=== PATIENT | female | born 1970 | race Caucasian/White ===

== ENCOUNTER 2023-11-17 07:37 | Emergency (ER) | payer BC, SELFPAY ==
[2023-11-17 07:49] VITALS: BP 125/74; PULSE 78; RESP 18; TEMP 36.3; O2SAT 99; BMI 29.1
--- NOTE | 2023-11-17 08:45 | ED.EYEPROB ---
HPI - Eye Problem General Date Seen: 11/17/23 Chief complaint: Eye Problems Stated complaint: RT eye pain, redness, swelling Time Seen by Provider: 11/17/23 07:51 Source: patient and family Mode of arrival: ambulatory Limitations: no limitations History of Present Illness HPI Narrative: Patient is a very nice 53-year-old female who presents here with her significant other for evaluation of right eye pain, this came on after she took her contact out last night, she had some difficulty doing this. It did cause her some problems at the time but she woke up a few hours later at 2:00 a.m. with tearing of her right eye pain and really worsening when she lays flat. The pain improves when she sits up. And also the light bothers her eyes. She thought maybe she got a lash in RE as this is happened before and she irrigated out her eye, she also thought maybe she is developing a stye. She did not take anything for the eye, she did use some refresh drops. She seeks her eye care up in [place] with . Tetanus was updated 2018. She is allergic to canes. But notes that she has had lidocaine without a problem and sewing her up, the 2 times were it has been an issue has been an injection in her mouth, for dental work. Where she actually had a syncopal episode after this. MD chief complaint: eye pain and eye redness Onset (ago): hour(s) Onset description: sudden and awoke with symptoms Location: right eye Eye Symptoms: burning, redness, pain, foreign body sensation and photophobia Place: home Mechanism: direct trauma Severity: moderate If Pain, Quality: sharp Associated symptoms: none Treatments Prior to Arrival: OTC eye drops Related Data Patient tetanus UTD: Yes Previous Rx's ?Medication ?Instructions ?Recorded ofloxacin 0.3 % eye drops See Rx Instructions ophthalmic 11/17/23 (eye) .COMPLEX #10 mL Allergies Allergy/AdvReac Type Severity Reaction Status Date / Time medhat AdvReac Uncoded 11/17/23 07:52 PFSH PFSH Social History Smoking Status: Unknown if ever smoked Non-prescribed substance use: denies use Exam Narrative: Exam Narrative: On examination in room 4 she is in no apparent distress. Her right eye is tearing, there is no lid swelling notable. She has no significant redness, her pupils are equal round reactive to light I do not see a ciliary blush. She is not really able to open her eyes and she is pretty photophobic in her right eye, none in her left. There is no preauricular nodes notable. No evidence of trauma. Extraocular muscles are normal. No blood in the anterior chamber. 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 This correlated to what she told me. Fluorescein did not enter the anterior chamber. No other evidence of injury is noted on her eye, I was able to cookie her upper lid, there is no evidence of foreign body, her lower lid showed no evidence also. There is no evidence of a stye or a chalazion. Const: Vital Signs, click to edit/add: Vital Signs - 24 hr 11/17/23 07:49 Temperature 97.4 F L Pulse Rate [Right Pulse Oximeter] 78 Respiratory Rate 18 Blood Pressure [Ri ght Upper Arm] 125/74 Pulse Oximetry 99 Oxygen Delivery Me thod Room Air Documenting provider has reviewed patient's vital signs: yes Course Vital Signs Vital signs: Initial Vital Signs Temperature 97.4 F L 11/17/23 07:49 Temperature Source Temporal Artery Scan 11/17/23 07:49 Pulse Rate 78 11/17/23 07:49 Respiratory Rate 18 11/17/23 07:49 Blood Pressure 125/74 11/17/23 07:49 Blood Pressure Mean 91 11/17/23 07:49 Blood Pressure Position Sitting 11/17/23 07:49 Pulse Oximetry 99 11/17/23 07:49 Oxygen Delivery Method Room Air 11/17/23 07:49 Vital Signs Temperature 97.4 F L 11/17/23 07:49 Pulse Rate 78 11/17/23 07:49 Respiratory Rate 18 11/17/23 07:49 Blood Pressure 125/74 11/17/23 07:49 Pulse Oximetry 99 11/17/23 07:49 Oxygen Delivery Method Room Air 11/17/23 07:49 Temperature 97.4 F L 11/17/23 07:49 Pulse Rate 78 11/17/23 07:49 Respiratory Rate 18 11/17/23 07:49 Blood Pressure 125/74 11/17/23 07:49 Pulse Oximetry 99 11/17/23 07:49 Oxygen Delivery Method Room Air 11/17/23 07:49 MDM - Eye Problem MDM Narrative Medical decision making narrative: I discussed with her this is likely of corneal abrasion, I do not think this is acute angle glaucoma, or thyroiditis, given what I am seeing. I do not see evidence of a foreign body. NSAIDs are good medications to help the discomfort. We gave her ibuprofen here. I will put her on some ofloxacin drops for her eye. As she is at higher risk with contact user of infection. She is not 75% better by tomorrow, I have asked her to see her eye person and [place]. Medical Records Attestation: I reviewed the patient's medical records. Discharge Plan Discharge Clinical Impression: Corneal abrasion Patient Disposition: Home w/ Parent or Adult Condition: Stable Instructions: Corneal Abrasion (DC) Additional Instructions: Home, rest, use of sunglasses, ibuprofen 600 mg 3 times a day. Use eye drops to prevent infection, if not 75% better tomorrow, please go see your desktop analyst, as they have a lot better quit minute then I have here. There was a small corneal abrasion at the 9 o'clock position. I suspect this is from using the contacts I could find no evidence of foreign body or stye. Activity Level: Light activity Prescriptions: New ofloxacin 0.3 % drops See Rx Instructions .ROUTE .COMPLEX Qty: 10 0RF Rx Instructions: put 1-2 drps into affected eye(s) every 2-4 h x 2 days, then 1-2 drps 4 times/day days 3-7 Follow Up/Referrals: Kellen Centeno DO [Primary Care Provider] - Stand Alone Forms: [email or web address] Info Instructions
== END 2023-11-17 09:00 | disposition home or self-care (01) ==
LOC: ED 08:47
PROVIDERS: Emergency Provider Family Medicine; PCP Family Medicine
DX: S05.01XA Injury of conjunctiva and corneal abrasion without foreign body, right eye, initial encounter (principal)
CPT/HCPCS: 99283

== ENCOUNTER 2024-10-01 21:18 | Emergency (ER) | payer BC, SELFPAY ==
--- OUTSIDE RECORDS SUMMARY | 2024-10-01 21:22 | XMS_ITS | Clinical Summary ---
Author Organization [facility] Address [facility] [place] [address] Care Team Providers Care Accounting Practice Manager Name Role Phone Taryn Kellenspenser Benítez DO Primary Care Provider Allergies Active Allergy Reactions Criticality Noted Date Comments Bee Pollen Hives 11/05/2005 EPI pen Covid-19 Vaccine, Ad26.Cov2.S ([employer]) Throat Swelling/Closing High 07/22/2021 Gluten Stomach Upset High 10/21/2007 Intolerance Milk Anaphylaxis High 09/30/2005 All dairy = respiratoy distress,cramps ,hives,vomiting Mold Other - Describe In Comment Field 04/07/2020 Procaine Hives 10/04/2005 ALL -AMANDA...possible issue with preservatives in local, hives with benzocaine. Has had lidocaine without problems. Unlisted Allergen (Include Detail In Comments) Hives,Itching 09/04/2021 Sutures/Stiches Gets infected Venom-Honey Bee Hives 04/07/2020 Wheat GI Upset 04/07/2020 Medications b complex vitamins (VITAMIN B COMPLEX) capsule Take 1 capsule by mouth once daily. 0 9 Active Magnesium Glycinate (Mag Glycinate) 100 mg tab Take 200 mg by mouth once daily. 0 3 Active HLA-HCN-VIMZ THISTLE-SELENOM ET ORAL Take 1 Capsule by mouth once daily. 5 Active ascorbic acid, vitamin C, (Vitamin C) 100 mg tablet Take 500 mg by mouth once daily. 5 Active coenzyme q10 (CoQ-10) 100 mg cap Take 100 mg by mouth once daily. 4 Active Niacinamide 50 mg tab Take 50 mg by mouth three times daily. 5 Active medication order composerIndicat ions:Encounter for general health examination cod liver oil with D and A 1100 omega 5 Active EPINEPHrine (EpiPen) 0.3 mg/0.3 mL auto-injectorIn dications:Aller gic reaction, subsequent encounter,Hives Inject 0.3 mg intramuscular one time if needed for Allergic Reaction. 2 Each 1 5 Active fluticasone (50 mcg per actuation) nasal solution (FLONASE)Indica tions:Seasonal allergic rhinitis due to pollen Inhale 1 Parrott in both nostrils once daily. 48 mL 2 5 Active clobetasol 0.05 % creamIndication s:Vaginal irritation Apply topically to affected area(s) two times daily. 60 g 1 5 Active albuterol HFA 90 mcg/actuation inhalerIndicati ons:SOB (shortness of breath) Inhale 1-2 Puffs by mouth every 4 hours if needed for Shortness Of Breath. 1 Each 5 Active Active Problems Problem Noted Date Diagnosed Date Hx gestational diabetes 07/22/2022 Lichen sclerosus of female genitalia 04/30/2022 Atypical ductal hyperplasia of right breast 04/2021 Allergy to cow's milk protein 04/07/2020 Non-celiac gluten sensitivity 04/07/2020 Other specified postprocedural states 04/07/2020 Overview (07/05/2024): Bilateral Adverse food reaction 09/13/2016 Fatigue 09/13/2016 Adverse food reaction 09/13/2016 Family history of abdominal aortic aneurysm 11/02 Family history of ischemic h eart disease and other diseases of the circulatory system 11/16/2013 Bee allergy status 09/01/2012 ACL (anterior cruciate ligament) tear 08/22/2011 Benign mammary dysplasia Resolved Problems Problem Noted Date Diagnosed Date Resolved Date Premenopausal menorrhagia 07/15/2010 Elderly multigravida unspeci fied as to episode of care or not applicable 08/11/20062010 Previous delivery, unspecified as to episode of care or not applicable(654.20) 08/11/2006 01/14/2011 Abnormal maternal glucose to lerance, antepartum 08/11/2006 01/14/2011 Abnormal maternal glucose to lerance, complicating , childbirth, or the puerperium, unspecified as to episode of care 08/03/2006 01/25/2011 Depressive disorder, not elsewhere classified 10/05/19 06 05/02/2008 Irritable bowel syndrome 10/04/2005 Depression, major 01/25/2011 Encounters Date Type Department Care Team Description 09/06/2024 1:20 PM CDT - 09/06/2024 11:59 PM CDT Hospital Encounter [facility] Heartscan [address] [place] [address] Kellen Centeno DO Fam hx-ischem heart disease 09/06/2024 Travel 09/03/2024 4:00 PM CDT Ancillary Procedure [facility] [address] [place] [address] 09/03/2024 Travel 08/29/2024 Travel 08/10/2024 3:55 PM CDT Office Visit [facility] [address] [place] [address] Kellen Centeno DO Concerns (Family members brother, dad, moms father, and cousin on moms side had heart related problems heart attack and aneurisms./Mom had aneurysms and congestive heart failure.) 08/10/2024 Travel 08/06/2024 Telephone [facility] [address] [place] [id number] [place] PA Results 08/05/2024 Travel 08/03/2024 9:30 AM CDT Office Visit [facility] [address] [place] [id number] [place] V[place] PA Follow Up 08/03/2024 8:33 AM CDT - 08/03/2024 11:59 PM CDT Hospital Encounter [facility] [address] [facility] [address] [place] [address] Visit for screening mammogram 08/03/2024 Travel 07/05/2024 8:30 AM CDT Office Visit [facility] [address] [place] [address] Manolo Valdivia MD Pharyngitis (Was on cruise last week, symptoms started last Tuesday) 07/04/2024 Travel from Last 3 Months Immunizations Immunization Administration Dates Next Due HepA-HepB (Twinrix) 06/08/2024 Influenza A (H1N1), Inactiva ho (Age >=3 Years) 06/01/2008 Influenza Virus, Unspecified 01/25/2011, 03/04/2009,03/22/2008,2006,03/05/2006,03/09/2005 Influenza, IIV3 (Age 6-35 mos) 01/25/2011 Influenza, IIV3 (Age >=3 years) 01/26/20 11,03/04/2009,03/22/2008,2006,03/05/2006,03/09/2005 Td (Age >=7 Years) 07/01/2017,11/08/2003 Td, Preservative Free (age > = 7 Years) 07/01/2017 Tdap 03/22/2008 Family History Medical History Relation Name Comments Heart attack Brother Hypertension Brother smoles Basal cell carcinoma Father Cancer Father thyroid cancer Diabetes Father Heart Disease Father Heart attack Father x3 Hypertension Father Heart Disease Maternal Grandfather Diabetes Maternal Grandmother Hypertension Maternal Grandmother COPD Mother smoker Heart failure Mother congestive hea rt failure Hypertension Mother aaa Mother dissection Cancer Paternal Grandfather leukemi a Cancer-breast No Family History Cancer-colon No Family History Cancer-ovarian No Family History Cancer-prostate No Family History Relation Name Status Comments Brother Child Alive x 4 Father (Age 69) dementia, diabetes Maternal Grandfather Maternal Grandmother 02/09 Mother Paternal Grandfather Paternal Grandmother Social History Tobacco Use Types Packs/Day Years Used Date Smoking Tobacco: Never Smokeless Tobacco: Never Tobacco Cessation:Counseling Given: Yes Alcohol Use Standard Drinks/Week Comments Yes 0 (1 standard drink = 0.6 oz pur e alcohol) Rarely, 1 every 3-4 months PHQ-2 Answer Date Recorded PHQ-2 TOTAL SCORE 0 06/01/2024 Social Connections Answer Date Recorded Do you often feel lonely or isolated from those around you? 0 05/31/2024 Financial Resource Strain Answer Date R ecorded Difficulty of Paying Living Expenses 3 05/31/2024 Difficulty of Paying Living Expenses Not on file 05/31/2024 Food Insecurity Answer Date Recorded Do you worry your food will run out before you are able to buy more? 1 05/31/2024 Transportation Needs Answer Date Record ed Does lack of transportation keep you from medica l appointments? 1 05/31/2024 Does lack of transportation keep you from work, meetings or getting things that you need? 1 05/31/2024 Housing Stability Answer Date Recorded What is your housing situation today? 1 05/31/2024 Utilities Answer Date Recorded Do you have trouble paying f or utilities (for example, heat, electricity, water, phone)? 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 Not on file Not on file Not on file Obstetrics History Para Term AB IAB SAB Ectopic Multiple Livin g Live Births 4 4 4 0 0 0 0 0 4 4 Date Outcome GA Total Labor Labor/2nd/3rd Weight Sex Type Anes PTL Roxanne A1 A5 Name Clin 003 Term 8h 00m/ 3.87 kg (8 lb 8.5 oz) M Vag Livin g Ministerio 005 Term 21h 00m/ 3.8 kg (8 lb 6 oz) M C-Sec tion Livin g William 005 Term 44h 00m/ 3.4 kg (7 lb 8 oz) F Vag Livin g Mehnaz 007 Term 2.86 kg (6 lb 5 oz) F C-Sec cassy Espinosaisrael mary Delivery Location:[facility] Comments:requested rep eat c/s and went into labor at 36 weeks Comments had tubal ligation at c/s Last Filed Vital Signs Vital Sign Reading Time Taken Comments Blood Pressure 108/74 08/10/2024 4:15 PM CDT Pulse 61 08/10/2024 4:15 PM CDT Temperature 36.5 C (97.7 F) 08/03/2024 9:13 AM CDT Respiratory Rate 16 2023 8:57 AM CDT Oxygen Saturation 100% 08/10/2024 4:15 PM CDT Inhaled Oxygen Concentration - - Weight 85.5 kg (188 lb 9.6 oz) 08/10/2024 4:15 P M CDT Height 167.2 cm (5' 5.83) 06/01/2024 1:03 PM CS T Body Mass Index 30.6 06/01/2024 1:03 PM HEAD LIBRARIAN Plan of Treatment Upcoming Encounters Date Type Department Care Team (Late st Contact Info) Description 11/20/2024 2:30 PM CDT Office Visit [facility] [address] [place] [address] Ana Lay MD [address] [place] [address] Health Maintenance Due Date Last Done Comments Pneumococcal series for age 50+ (1 of 1 - PCV) 07/20/2021 Zoster (shingles) series for age 50+ (1 of 2) 07/20/2021 COVID-19 vaccine series (2 - season) 2023 01/28/2021 Hepatitis B series for 19+ ( 2 of 3 - Hep B Twinrix 3-dose series) 07/06/2024 06/08/2024 BMI (ht and wt on same day) for age 18+ 06/01/2025 06/01/2024, 07/22/2022, 07/22/2021, Additional history exists Depression screening for age 12+ 06/08/2025 06/08/2024, 06/01/2024, 07/22/2022, Additional history exists Mammogram for age 45-75 08/03/2025 08/04/19, 2023, 06/10/2022, Additional history exists Tetanus booster 07/02/2027 07/01/2017, 06/04, 03/22/2008, Additional history exists Lipids for age 45-75 06/01/2029 06/01/2024, 09/04/2021, 01/31/2019, Additional history exists Colonoscopy through age 75 11/19/203211/19, 11/19/2022, 11/19/2022 HIV for age 15-65 Completed 11/17/2005 ([facility]) Tdap Completed 03/22/2008 Hepatitis C screening for ag e 18-79 Completed 07/22/2022 Medical Devices Implanted Type Area Occupational Health Professional Device Identifier Shelf Expiration Date Model / Serial / Lot Stent Prcflx [id number] Hydpls - [id number] Implanted:Qty: 1 on 10/22/[address] [facility] Left: Ureter [facility] [id number] / / [id number] Procedures Procedure Name Priority Date/Time Associated Diagnosis Comments CT CARDIAC CALCIUM SCORE ONLY WO SINGLE READ Routine 09/06/2024 1:32 PM CDT Fam hx-ischem heart disease US AORTA Routine 09/03/2024 4:00 PM CDT Fam hx-ischem heart disease XR MAMMO HAILEY BILAT SCREEN Routine 08/03/2024 8:54 AM CDT Visit for screening mammogram THROAT RAPID STREP ONLY CLINIC Routine 07/05/2024 9:42 AM CDT Pharyngitis due to other organism LIPID PANEL W REFLEX MEASURED LDL Routine 06/01/2024 2:09 PM HEAD LIBRARIAN Lipid screening COLONOSCOPY SCREENING Routine 11/19/2022 7:50 AM CDT Encounter for screening colonoscopy LC HCV ANTIBODY RFX TO QUANT PCR Routine 07/22/2022 8:45 AM CDT Need for hepatitis C screening test from Last 3 Months or Most Recently Relevant to Health Maintenance Results * CT CARDIAC CALCIUM SCORE ONLY WO SINGLE READ (09/06/2024 1:32 PM CDT) Anatomical Region Laterality Modality Computed Tomogra phy 09/07/2024 9:25 AM CDT Narrative 09/07/2024 9:25 AM CDT For Patients: As a result of the Century Cures Act, medical imaging exams and procedure reports are released immediately into your electronic medical record. You may view this report before your referring provider. If you have questions, please contact your health care provider. CT CARDIAC CALCIUM SCORING PATIENT HISTORY: Screening for coronary artery disease REPORT: High-resolution, ECG-synchronized noncontrast computed tomography of the heart with attention to the coronary arteries was performed. Coronary calcification analyzed using Siemens calcium scoring software. These are the results of the evaluation: CT Calcium Scoring: This cardiac CT examination will provide you with a coronary artery calcium score. A coronary artery calcium score is a measurement of the amount of calcified plaque in the coronary arteries, the arteries that supply blood to the heart muscle. The coronary artery calcium score is calculated based on the number, size, and density of the calcified plaques in the coronary arteries. The amount of calcified coronary plaque has been shown to directly correlate with future risk for heart disease. The coronary artery calcium is a marker of how much plaque has accumulated in the kauffman of the coronary arteries. It is not a test for blockages. This test is intended to assess cardiovascular risk in patients without symptoms. It is not intended to be a test for individuals with chest pain or other possible symptoms suggestive of heart disease. If you are having chest pain or other potential cardiovascular symptoms, see your physician. Calcium Score: Left main = 0 Left anterior descending = 0 Left circumflex = 0 Right coronary artery = 0 Total calcium score = 0 This places the patient at the 0th percentile for matched age and gender. No Calcified Plaque Seen. Assessment: Your cardiac CT examination has shown no measurable calcified coronary plaque. Your coronary artery calcium score is zero. Having zero calcified plaque in the arteries that supply your heart is associated with a low risk for heart attack over the next 5 years. As discussed above, the coronary artery calcium score is intended for risk assessment in patients without cardiovascular symptoms. The low risk associated with having zero calcified plaque does not apply to individuals who are having symptoms. If you are having chest pain or other potential cardiovascular symptoms, see your physician. Recommendations: To maintain a low cardiovascular risk, we strongly recommend adherence to healthy lifestyle behaviors including: - Following a heart healthy diet focused on modest portion sizes, a high intake of fresh fruits and vegetables, whole grains, healthy fats (olive oil, nuts and seeds, avocados), and healthy proteins (unprocessed meats, fish, legumes). - Following an active lifestyle including 30-45 minutes of moderate intensity exercise 5-6 times per week - Avoidance of tobacco products. The scientific evidence would suggest that the majority of individuals with a coronary artery calcium score of zero are at low risk for a heart attack, low enough risk that they are unlikely to benefit from preventive cardiovascular medication including aspirin and the cholesterol lowering statin medications. We recommend that individuals with a coronary artery calcium score of zero avoid taking a daily aspirin to prevent heart disease, as they are unlikely to benefit from aspirin, and aspirin use is associated with a small increase in the risk of bleeding. Unless you have markedly elevated cholesterol or diabetes, the scientific evidence would suggest that individuals with a calcium score of zero can potentially avoid taking cholesterol-lowering medications for the next 3-5 years. These recommendations are generalized and may not specifically apply to you as an individual. Your primary care physician is in the best position to provide advice on your care and clinical decisions should ultimately be made by you and your physician. EXTRACARDIAC STRUCTURES: No acute or suspicious imaging abnormalities of the extracardiac structures. Please note that all CT scans at this facility use dose modulation, iterative reconstruction, and/or weight-based dosing when appropriate to reduce radiation dose to as low as reasonably achievable. Dictated by Basilio Elias MD @ 09/07/2024 9:25:01 AM (Electronically Signed) Procedure Note Basilio Elias MD - 09/07/2024 For Patients: As a result of the 21st Century Cures Act, medical imagingexams and procedure reports are released immediately into your electronicmedical record. You may view this report before your referring provider.If you have questions, please contact your health care provider. CT CARDIAC CALCIUM SCORING PATIENT HISTORY: Screening for coronary artery disease REPORT: High-resolution, ECG-synchronized noncontrast computed tomographyof the heart with attention to the coronary arteries was performed. Coronary calcification analyzed using Siemens calcium scoring software.These are the results of the evaluation: CT Calcium Scoring: This cardiac CT examination will provide you with acoronary artery calcium score. A coronary artery calcium score is ameasurement of the amount of calcified plaque in the coronary arteries,the arteries that supply blood to the heart muscle. The coronary arterycalcium score is calculated based on the number, size, and density of thecalcified plaques in the coronary arteries. The amount of calcifiedcoronary plaque has been shown to directly correlate with future risk forheart disease. The coronary artery calcium is a marker of how much plaque has accumulatedin the kauffman of the coronary arteries. It is not a test for blockages.This test is intended to assess cardiovascular risk in patients withoutsymptoms. It is not intended to be a test for individuals with chest painor other possible symptoms suggestive of heart disease. If you are havingchest pain or other potential cardiovascular symptoms, see yourphysician. Calcium Score: Left main = 0 Left anterior descending = 0 Left circumflex = 0 Right coronary artery = 0 Total calcium score = 0 This places the patient at the 0th percentile for matched age andgender. No Calcified Plaque Seen. Assessment: Your cardiac CT examination has shown no measurable calcifiedcoronary plaque. Your coronary artery calcium score is zero. Having zero calcified plaque in the arteries that supply your heart isassociated with a low risk for heart attack over the next 5 years. As discussed above, the coronary artery calcium score is intended for riskassessment in patients without cardiovascular symptoms. The low riskassociated with having zero calcified plaque does not apply to individualswho are having symptoms. If you are having chest pain or other potentialcardiovascular symptoms, see your physician. Recommendations: To maintain a low cardiovascular risk, we strongly recommend adherence tohealthy lifestyle behaviors including: - Following a heart healthy diet focused on modest portion sizes, a highintake of fresh fruits and vegetables, whole grains, healthy fats (oliveoil, nuts and seeds, avocados), and healthy proteins (unprocessed meats,fish, legumes). - Following an active lifestyle including 30-45 minutes of moderateintensity exercise 5-6 times per week - Avoidance of tobacco products. The scientific evidence would suggest that the majority of individualswith a coronary artery calcium score of zero are at low risk for a heartattack, low enough risk that they are unlikely to benefit from preventivecardiovascular medication including aspirin and the cholesterol loweringstatin medications. We recommend that individuals with a coronary artery calcium score of zeroavoid taking a daily aspirin to prevent heart disease, as they areunlikely to benefit from aspirin, and aspirin use is associated with asmall increase in the risk of bleeding. Unless you have markedly elevated cholesterol or diabetes, the scientificevidence would suggest that individuals with a calcium score of zero canpotentially avoid taking cholesterol-lowering medications for the next 3-5years. These recommendations are generalized and may not specifically apply toyou as an individual. Your primary care physician is in the best positionto provide advice on your care and clinical decisions should ultimately bemade by you and your physician. EXTRACARDIAC STRUCTURES: No acute or suspicious imaging abnormalities of the extracardiacstructures. Please note that all CT scans at this facility use dose modulation,iterative reconstruction, and/or weight-based dosing when appropriate toreduce radiation dose to as low as reasonably achievable. Dictated by Basilio Elias MD @ 09/07/2024 9:25:01 AM (Electronically Signed) us Kellen Centeno DO CT Final Resul t * US AORTA (09/03/2024 4:00 PM CDT) Anatomical Region Laterality Modality Abdomen, AORTA Ultrasound 09/04/2024 10:1 3 AM CDT Impressions 09/04/2024 10:13 AM CDT Normal ultrasound of the abdominal aorta. No sign of aneurysm. Dictated by Kareem Acevedo MD @ 09/04/2024 10:13:49 AM (Electronically Signed) Narrative 09/04/2024 10:13 AM CDT For Patients: As a result of the 21st Century Cures Act, medical imaging exams and procedure reports are released immediately into your electronic medical record. You may view this report before your referring provider. If you have questions, please contact your health care provider. INDICATION: Maternal history of aortic dissection TECHNIQUE: Ultrasound aorta with color Doppler analysis. COMPARISON: None FINDINGS: The proximal abdominal aorta measures 2.3 x 2.4 cm, mid aorta measures 1.7 x 1.6 cm, distal aorta measures 1.6 x 1.5 cm, right common iliac artery measures 1.0 x 1.0 cm, and the left common iliac artery measures 1.0 x 1.1 cm. There are no periaortic abnormalities evident. Procedure Note aKreem Acevedo MD - 09/04/2024 For Patients: As a result of the Cures Act, medical imagingexams and procedure reports are released immediately into your electronicmedical record. You may view this report before your referring provider.If you have questions, please contact your health care provider. INDICATION: Maternal history of aortic dissection TECHNIQUE: Ultrasound aorta with color Doppler analysis. COMPARISON: None FINDINGS: The proximal abdominal aorta measures 2.3 x 2.4 cm, mid aorta measures 1.7x 1.6 cm, distal aorta measures 1.6 x 1.5 cm, right common iliac arterymeasures 1.0 x 1.0 cm, and the left common iliac artery measures 1.0 x 1.1cm. There are no periaortic abnormalities evident. IMPRESSION: Normal ultrasound of the abdominal aorta. No sign of aneurysm. Dictated by Kareem Acevedo MD @ 09/04/2024 10:13:49 AM (Electronically Signed) us Kellen Centeno DO US Final Resul t * XR MAMMO HAILEY BILAT SCREEN (08/03/2024 8:54 AM CDT) Anatomical Region Laterality Modality BREASTS, Breast Left, Breast Right Bilateral Mammography Impressions 08/06/2024 8:58 AM CDT There is no radiographic evidence for malignancy. Recommend annual mammograms. MAMMOGRAM ASSESSMENT: ACR 1 Negative PATIENTS: You will also receive a letter with your examination results in an easy to read format. If you have questions about your results, please contact your referring provider. Narrative 08/06/2024 8:58 AM CDT For Patients: As a result of the Cures Act, medical imaging exams and procedure reports are released immediately into your electronic medical record. You may view this report before your referring provider. If you have questions, please contact your health care provider. XR MAMMO HAILEY BILAT SCREEN [[id number]] CLINICAL HISTORY: This is an asymptomatic 54 y.o. patient. INDICATION FOR EXAM: Mammogram Screening. TECHNIQUE: CC and MLO views were obtained. This study was evaluated with the assistance of Computer-Aided Detection. Breast Tomosynthesis was used in interpretation. COMPARISON FILM: Yes 07/21/23 [facility] 06/10/22 [facility] FINDINGS: There are scattered areas of fibroglandular density. There are no dominant masses, suspicious micro calcifications or areas of architectural distortion. Kellen Jackelin Centeno DO MAMMO Final Resul t * POCT Throat Rapid Strep (07/05/2024 9:42 AM CDT) POC, GROUP A STREP NOT DETECTED NOT DETECTED [facility] Comment: The [employer] recommends that a throat culture be performed if a rapid group A streptococcus assay yields a negative result. [facility] recommends Streptococcus, Group A culture. Throat SPECIMEN FROM THROAT / Unknown 07/05/2024 9:42 AM CDT 07/05/2024 9:42 AM CDT Manolo Valdivia MD MICROBIOLOGY Final R esult [facility] [id number] [place] [address] [facility] [address] [place] [address] * (ABNORMAL) LIPID PANEL W REFLEX MEASURED LDL (06/01/2024 2:09 PM HEAD LIBRARIAN) CHOLESTEROL, TOTAL 216(H) <200 mg/dL [facility] HDL CHOLESTEROL 96 > OR = 50 mg/dL [facility] TRIGLYCERIDES 49 <150 mg/dL [facility] LDL-CHOLESTEROL 106(H) mg/dL (calc) [facility] Comment: Reference range: <100 Desirable range <100 mg/dL for primary prevention; <70 mg/dL for patients with CHD or diabetic patients with > or = 2 CHD risk factors. LDL-C is now calculated using the Christofer-Mitchell calculation, which is a validated novel method providing better accuracy than the Friedewald equation in the estimation of LDL-C. Christofer SS et al. JAMES. 2013;310(19): 1831-9868 (http://education.okay.com/faq/DDY611) CHOL/HDLC RATIO 2.3 <5.0 (calc) [facility] NON HDL CHOLESTEROL 120 <130 mg/dL (calc) [facility] Comment: For patients with diabetes plus 1 major ASCVD risk factor, treating to a non-HDL-C goal of <100 mg/dL (LDL-C of <70 mg/dL) is considered a therapeutic option. Blood BLOOD SPECIMEN / Unknown 06/01/2024 2:09 PM HEAD LIBRARIAN 06/01/2024 2:10 PM HEAD LIBRARIAN Kellen Centeno DO CHEMISTRY Final Resul t [facility] [address] [address], [facility] [address] * COLONOSCOPY (11/19/2022 7:53 AM CDT) 11/19/2022 7:53 AM CDT Narrative Transcriptions Christofer Doran MD - 11/19/2022 9:17 AM CDT Patient Name: Shahnaz Seymour Procedure Date: 11/19/2022 Gender: Female Date of : 1970 Admit Type: Outpatient Procedure: Colonoscopy Proceduralist: Christofer Doran MD , Kellen Medina RN (Nurse), Maria Antonia Cummings (Nurse) Referring MD: Kellen Centeno Indications/Pre-Op Diagnosis: Screening for colorectal malignant neoplasm, Last colonoscopy: date unknown (unable to locate last colonoscopy report) Medications: Fentanyl 150 micrograms IV, Midazolam 2 mgIV, The level of sedation administered wasmoderate Procedure Description: The patient had risks, benefits and alternatives explained to andgave informed consent. The patient had a stable cardiopulmonary status and judged an adequate candidate for conscious sedation. The endoscope [id number]-[id number] was passed through the anus andadvanced to the cecum, identified by appendiceal orifice and ileocecal valve.The colonoscopy was performed without difficulty. The patient toleratedthe procedure well. The quality of the bowel preparation was good. The ileocecal valve, appendiceal orifice, and rectum were photographed. Complications: No immediate complications. Estimated Blood Loss & Specimen: Estimated blood loss: none. Specimen collected - Yes and sent to Laboratory Findings: The perianal and digital rectal examinations were normal. A 2 mm polyp was found in the descending colon. The polyp wassessile. The polyp was removed with a cold biopsy forceps. Resection and retrieval were complete. The exam was otherwise without abnormality. Impressions/Post-Op Diagnosis: - One 2 mm polyp in the descending colon, removed with a cold biopsy forceps. Resected and retrieved. - The examination was otherwise normal. Recommendation: - Patient has a contact number available for emergencies. The signsand symptoms of potential delayed complications were discussed with the patient. Return to normal activities tomorrow. Written discharge instructions were provided to the patient. - Resume previous diet. - Continue present medications. - Await pathology results. - Repeat colonoscopy is recommended. The colonoscopy date will be determined after pathology results from today's exam become available for review. Moderate Sedation: A time out was performed before the procedure. Moderate (conscious) sedation was administered by the endoscopy nurse and supervised bythe endoscopist. The following parameters were monitored: oxygensaturation, heart rate, blood pressure, EKG, CO2, respiratory rate, adequacy of pulmonary ventilation and reponse to care. Please refer to the patient's medical record flowsheets and nursing notes for moderate sedation details. Total physician intraservice time was 22 minutes. Christofer Doran MD 11/19/2022 9:17:43 AM This report has been signed electronically. Note Initiated On: 11/19/2022 7:53 AM Procedure Code(s): --- Professional --- 31524, Colonoscopy, flexible; with biopsy, single or multiple Diagnosis Code(s): --- Professional --- Z12.11, Encounter for screening formalignant neoplasm of colon D12.4, Benign neoplasm of descending colon CPT copyright 2021 [employer]. All rights reserved. The codes documented in this report are preliminary and upon service transformer repair supervisor reviewmay be revised to meet current compliance requirements. Scope In: 8:46:56 AM Scope Withdrawal Time 0 hours 10 minutes 54 seconds Scope Out: 9:06:18 AM us Christofer Doran MD PROCEDURE ORD Final Res ult * LC HCV ANTIBODY RFX TO QUANT PCR (07/22/2022 8:45 AM CDT) HCV Ab Non Reactive Non Reactive 07/25/2022 12:07 PM CDT [facility] Blood BLOOD SPECIMEN / Unknown Venipuncture / Unknown 07/22/2022 8:45 AM CDT 07/22/2022 8:47 AM CDT Narrative [facility] - 07/25/2022 12:07 PM CDT Performed at: [address] [place] [address] [place] [id number] Medical Assisting Program Director: Sherwin Ramirez MD, Phone: [phone] us Kellen Centeno DO LABORATORY Final Resul t [facility] [address] [place] [id number], from Last 3 Months or Most Recently Relevant to Health Maintenance Insurance BLUE CROSS OF NON-MD-ITS Advance Directives Documents on File Type Date Recorded Patient Human Services Assistant Expl anation Healthcare Directive 10/12/2010 * Full Code (Latest Code Status on File) Date Activated Date Inactivated Comments 09/07/2021 8:30 AM 09/07/2021 2:34 PM Question Answer Comments Code Status Discussion: Unable to Assess Preferences, Provider to review later * Full Code Date Activated Date Inactivated Comments 07/15/2010 7:34 AM 07/15/2010 4:01 PM * Full Code Date Activated Date Inactivated Comments 10/21/2007 1:11 PM 10/22/2007 2:45 PM * Full Code Date Activated Date Inactivated Comments 08/11/2006 4:12 PM 08/15/2006 3:59 PM * Full Code Date Activated Date Inactivated Comments 08/11/2006 2:43 PM 08/11/2006 4:12 PM Care Teams Accounting Practice Manager Relationship Specialty Start Date End Date Kellen Centeno DO [address] [place] [address] PCP - General Family Practice 05/11/13
[2024-10-01 21:36] VITALS: BP 110/73; PULSE 77; RESP 18; TEMP 36.5; O2SAT 98; BMI 30.5
--- NOTE | 2024-10-01 21:54 | ED_ITS ---
HPI - Eye Problem General Time Seen by Provider: 21:54 Date Seen: 10/01/24 Chief complaint: Eye Problems Stated complaint: poked L eye w/stick Time Seen by Provider: 10/01/24 21:54 Source: patient and RN notes reviewed Mode of arrival: ambulatory Limitations: no limitations History of Present Illness HPI Narrative: This 54-year-old female is coming into the ER with trauma to her left eye. She was picking raspberries and got a raspberry stick that penetrated into her left eye, was stuck there. She removed this tick herself. She noticed redness around the area, it hurts to close her eye all the way but it also hurts to leave her eye open. She feels best in a somewhat partially close diet but not overlying the area of injury in her left medial eye. She was unsure of her tetanus but does believe was up-to-date. We did look in her chart and it was last given in June of 2017. She states her vision is normal but the eye where the injury is is just irritated. Related Data Previous Rx's ?Medication ?Instructions ?Recorded ofloxacin 0.3 % eye drops See Rx Instructions ophthalm ic 11/17/23 (eye) .COMPLEX #10 mL Allergies Allergy/AdvReac Type Severity Reaction Status Date / Time medhat AdvReac Uncoded 11/17/23 07:52 Review of Systems Narrative: As per HPI. PFSH PFSH Social History Smoking Status: Unknown if ever smoked Non-prescribed substance use: denies use Exam Const: Vital Signs, click to edit/add: Vital Signs - 24 hr 10/01/24 21:36 10/01/24 23:15 Temperature 97.7 F 97.7 F Pulse Rate [Pulse Oximeter] 77 70 Respiratory Rate 18 18 Blood Pressure [Ri ght Upper Arm] 110/73 110/79 Pulse Oximetry 98 98 Oxygen Delivery Me thod Room Air Room Air This 54-year-old female is alert, interactive, no apparent distress. She did have her lower lid somewhat closed on the left eye, when she does open it can see some erythema with subconjunctival hematoma in the medial left eye. In the center of this I can see a small cut or laceration, maybe 2-3 mm, unclear how deep this goes but I do not see any oozing out of this injury. The globe still seems to be round and circular, no deflation or flattening of the area. Watching her, extraocular muscles do seem to be intact, she does seem to be able to move the eye. There is no periorbital changes of the skin or the eyelids, no swelling. There is no mattering or watering of the eye. This is outside the area of the cornea and certainly her pupil is equal and round. Right eye appears unaffected. Documenting provider has reviewed patient's vital signs: yes Course Course ED Course: Will talk to [facility] for advice. Will attempt to page them. Have done some reading in up-to-date as well. If this is a full penetrating injury, IV antibiotics and certainly Ophthalmology are needed. Orbital CT within cuts can be used and if there is air in the globe, does confirm this penetrating injury. However, if the globe itself appears intact on the CT, it does not completely rule out a penetrating injury. Reevaluation(s) Time of Reevaluation #1: 23:13 Reevaluation #1: Patient is advised of plan, did print out a general chart review from [facility]. We did send this with her so they have some basic past medical history on her. Consultations Consultation #1: Did talk to Dr. Pelaez from [facility]. Reviewed the injury. He agrees that this patient should see Ophthalmology tonight. [place] [facility] [place] did state that the [facility] [place] [place] does have Ophthalmology on-call, that could be considered as well. Did talk to the patient about this, will try to facilitate transfer to 1 of these facilities. Time: 22:17 Consultation #2: [place] talk [place] [facility] [place] was some difficulty with the suppository molding machine operator having equipment failure in getting through to the ER. They did have to call me back. Spoke with Dr. Mercedes in the ED. they will do the CT up there. We will transfer her. Time: 23:05 Vital Signs Vital signs: Initial Vital Signs Temperature 97.7 F 10/01/24 21:36 Temperature Source Temporal Artery Scan 10/01/24 21:36 Pulse Rate 77 10/01/24 21:36 Pulse Rhythm Regular 10/01/24 21:36 Respiratory Rate 18 10/01/24 21:36 Blood Pressure 110/73 10/01/24 21:36 Blood Pressure Mean 85 10/01/24 21:36 Blood Pressure Position Sitting 10/01/24 21:36 Pulse Oximetry 98 10/01/24 21:36 Oxygen Delivery Method Room Air 10/01/24 21:36 Vital Signs Temperature 97.7 F 10/01/24 21:36 Pulse Rate 77 10/01/24 21:36 Respiratory Rate 18 10/01/24 21:36 Blood Pressure 110/73 10/01/24 21:36 Pulse Oximetry 98 10/01/24 21:36 Oxygen Delivery Method Room Air 10/01/24 21:36 Temperature 97.7 F 10/01/24 23:15 Pulse Rate 70 10/01/24 23:15 Respiratory Rate 18 10/01/24 23:15 Blood Pressure 110/79 10/01/24 23:15 Pulse Oximetry 98 10/01/24 23:15 Oxygen Delivery Method Room Air 10/01/24 23:15 Discharge Plan Discharge Clinical Impression: Corneal laceration of left eye Qualifiers: Encounter type: initial encounter Qualified Code(s): S05.32XA - Ocular laceration without prolapse or loss of intraocular tissue, left eye, initial encounter Eye injury, penetrating Qualifiers: Encounter type: initial encounter Laterality: left Qualified Code(s): S05.62XA - Penetrating wound without foreign body of left eyeball, initial encounter Patient Disposition: [facility] Discharge Location: [facility] Condition: Unchanged
[2024-10-01 23:15] VITALS: BP 110/79; PULSE 70; RESP 18; TEMP 36.5; O2SAT 98
== END 2024-10-01 23:15 | disposition short-term general hospital (02) ==
PROVIDERS: Emergency Provider Family Medicine; PCP Family Medicine
DX: S05.62XA Penetrating wound without foreign body of left eyeball, initial encounter (principal); W26.8XXA Contact with other sharp object(s), not elsewhere classified, initial encounter
CPT/HCPCS: 99283; 99284; 99285